=== PATIENT | male | born 1970 | race Caucasian/White ===

== ENCOUNTER 2016-10-12 18:39 | Emergency (ER) | payer OTHER ==
[~2016-10-12] VITALS: Ht 177.8 cm; Wt 180.0 kg
[2016-10-12 19:31] VITALS: BP 120/80
[2016-10-12] MEDS ORDERED: LIDOCAINE HCL 1% 10 ML VIAL INJ ONE (20:30)
== END 2016-10-12 21:19 | disposition home or self-care (01) ==
LOC: EMS 18:44
DX: S91.341A Puncture wound with foreign body, right foot, initial encounter (principal); W25.XXXA Contact with sharp glass, initial encounter; W45.8XXA Other foreign body or object entering through skin, initial encounter; Y93.89 Activity, other specified; Y92.89 Other specified places as the place of occurrence of the external cause; Y99.8 Other external cause status
CPT/HCPCS: 99284